=== PATIENT | female | born 1990 | race Caucasian/White ===

== ENCOUNTER 2023-02-16 08:33 | Emergency (ER) | payer BC ==
[~2023-02-16] VITALS: Ht 172.7 cm; Wt 90.7 kg
[2023-02-16 08:47] VITALS: O2SAT 100
[2023-02-16] MEDS ORDERED: SODIUM CHLORIDE 0.9% 1000ML BAG (SEPSIS BOLUS) IV ONE (09:00)
[2023-02-16] MEDS ORDERED: KETOROLAC 15MG/ML VIAL IV ONE (09:15)
[2023-02-16] MEDS ORDERED: ONDANSETRON HCL 4MG/2ML INJ IV ONE (09:15)
[2023-02-16 09:41] LABS: CLARITY URINE CLOUDY (CLEAR); COLOR URINE DARK YELLOW (YELLOW); GLUCOSE URINE NEGATIVE (NEGATIVE); KETONES URINE TRACE (NEGATIVE); LEUKOCYTE ESTERASE URINE TRACE (NEGATIVE); NITRITE URINE NEGATIVE (NEGATIVE); OCCULT BLOOD URINE NEGATIVE (NEGATIVE); PH URINE 6.5 (4.5-8.0); PROTEIN URINE 1+ (NEGATIVE); SPECIFIC GRAVITY URINE 1.027 (1.005-1.030); UROBILINOGEN URINE 0.2 E.U./dL (0.2-1.0)
[2023-02-16 09:44] LABS: BASOPHILS % 0.2 % (0.0-2.0); EOSINOPHILS % 0.1 % (0.0-5.0); HEMATOCRIT. 43.1 % (36.0-48.0); HEMOGLOBIN. 14.5 g/dL (12.0-16.0); LYMPHOCYTES % 15.2 % (20.0-50.0); MEAN CORPUSCULAR HEMOGLOBIN 29.8 pg (28.0-32.0); MEAN CORPUSCULAR HGB CONC 33.7 g/dL (31.0-37.0); MEAN CORPUSCULAR VOLUME 88.5 fL (81.0-99.0); MEAN PLATELET VOLUME 10.3 fl (7.4-10.4); MONOCYTES % 7.7 % (2.0-8.0); NEUTROPHILS % 76.8 % (40.0-76.0); PLATELET 181 x1000/uL (130-400); RED BLOOD CELL COUNT 4.86 mill/uL (4.2-5.4); RED CELL DISTRIBUTION WIDTH 12.6 % (11.6-14.6); WHITE BLOOD COUNT 8.4 x1000/uL (4.5-11.0)
[2023-02-16 09:47] LABS: ALANINE AMINOTRANSFERASE 24 IU/L (10-49); ALBUMIN 4.4 g/dL (3.2-4.8); ASPARTATE AMINOTRANSFERASE 37 IU/L (<34); BILIRUBIN TOTAL 0.5 mg/dL (0.1-1.0); CALCIUM 9.4 mg/dL (8.7-10.4); CARBON DIOXIDE 25 mEq/L (21-32); CHLORIDE 102 mEq/L (98-107); GLUCOSE 107 mg/dL (70-105); POTASSIUM 3.9 mEq/L (3.5-5.1); SODIUM 136 mEq/L (136-145); UREA NITROGEN BLOOD 8 mg/dL (9-23)
[2023-02-16 09:51] LABS: HCG SCREEN NEGATIVE
[2023-02-16 10:02] LABS: MUCUS URINE 3+ /lpf (< = 2+); SQUAMOUS EPITHELIAL CELL URINE 3+ /lpf (RARE/1+)
[2023-02-16 10:03] LABS: BACTERIA URINE 4+; RBC URINE 0-2 /hpf (0-2)
[2023-02-16] MEDS ORDERED: CEPH500C2 MT (11:09)
[2023-02-16] MEDS ORDERED: ONDA4TAB50 MT (11:09)
[2023-02-16] MEDS ORDERED: PANT40SU MT (11:19)
[2023-02-16] MEDS ORDERED: TRAM50TA3 MT (11:19)
[2023-02-16 11:35] VITALS: BP 127/72; PULSE 85; RESP 17; TEMP 99.1
== END 2023-02-16 11:36 | disposition home or self-care (01) ==
LOC: ER 08:33
DX: N30.00 Acute cystitis without hematuria (principal); R50.9 Fever, unspecified; Z91.040 Latex allergy status
CPT/HCPCS: 80053; 81003; 81025; 84703; 83605; 83690; 85025; 87040; 87086; 87804 ×2; 36415; 93005; 96361; 96374; 96376; 99284; J1885; J2405; J7030; Z7610 ×3